=== PATIENT | male | born 1995 | race Caucasian/White ===

== ENCOUNTER 2017-05-15 13:09 | Emergency (ER) | payer MEDICAID ==
[~2017-05-15] VITALS: Ht 172.7 cm; Wt 18.2 kg
[~2017-05-15 13:09] MED LIST: DICL100G15 TOP; NO HOME MEDS
[2017-05-15] MEDS ORDERED: acetaminophen 325mg tablet PO ONE (13:45)
[2017-05-15 13:53] VITALS: BP 147/93
== END 2017-05-15 13:54 | disposition home or self-care (01) ==
LOC: ER 13:10
DX: M25.571 Pain in right ankle and joints of right foot (principal); G89.29 Other chronic pain; F12.10 Cannabis abuse, uncomplicated; Z59.0 Homelessness; Z98.890 Other specified postprocedural states
CPT/HCPCS: 99282

== ENCOUNTER 2017-08-18 18:33 | Emergency (ER) | payer MEDICAID ==
[~2017-08-18] VITALS: Ht 175.3 cm; Wt 63.6 kg
[2017-08-18 19:00] VITALS: BP 129/81
== END 2017-08-18 19:31 ==
LOC: ER 18:33
DX: S30.0XXA Contusion of lower back and pelvis, initial encounter (principal); G89.29 Other chronic pain; F12.10 Cannabis abuse, uncomplicated; Z59.0 Homelessness; Z56.0 Unemployment, unspecified; Z98.890 Other specified postprocedural states; Z79.899 Other long term (current) drug therapy; X58.XXXA Exposure to other specified factors, initial encounter; Y93.89 Activity, other specified; Y92.89 Other specified places as the place of occurrence of the external cause; Y99.8 Other external cause status
CPT/HCPCS: 99283; J7030

== ENCOUNTER 2024-09-26 13:08 | Emergency (ER) | payer MEDICAID ==
[~2024-09-26] VITALS: Ht 172.7 cm; Wt 55.0 kg
[2024-09-26 13:23] VITALS: BP 141/119; PULSE 85; RESP 18; TEMP 97.8; O2SAT 100
--- NOTE | 2024-09-26 14:22 | Physician Documentation ---
HPI ~ General Chief Complaint: Medication Refill Stated Complaint: MEDICATION REFILL Time Seen by MD: 14:13 Primary Medical Doctor: Clari History of Present Illness HPI Comments 29-year-old male presents to the ED with a complaint of a medication refill of Suboxone. States he has been out for several days. He has also reportedly been using methamphetamine. Without Medications Since: September 26, 2024 Medication Reconciliation Allergies: Coded Allergies: No Known Allergies (Unverified , 09/26/24) Scheduled Buprenorphine HCl/Naloxone HCl (Suboxone 12 mg-3 mg Sl Film), 1 STRIP SL DAILY Diclofenac Sodium (Voltaren), 1 GM TOP Q6H Miscellaneous Medications Home Med List (No Home Medications), (Reported) Past Medical History Past Medical History: *CARDIOVASCULAR*, Chronic Pain Past Surgical History: orthopedic surgeries Alcohol Use: Occasionally Drug Use: marijuana Lives with: Mother, Father Lives In: Homeless Occupation: unemployed Review of Systems All Other Systems at this time: Reviewed and Negative ROS As stated above in the HPI, otherwise all systems are reviewed and negative. Physical Exam Physical Exam Vital Signs: Temperature: 97.8, Source: Temporal, Heart Rate: 85, Respiratory Rate: 18, BP: 141/119, Pulse Oximetry: 100, Weight: 55.000 Physical Exam General: Alert, no apparent distress. HEENT: PERRL, EOMI, no injection, moist mucous membranes. Neck: Full range of motion. Respiratory: Lungs clear, no respiratory distress. Chest: No accessory muscle use. Cardiovascular: Regular rate and rhythm, no murmurs. Gastrointestinal: Soft, nontender, nondistended. Bowels sounds present. Extremities: Normal range of motion, no deformity. Neurologic: Oriented x4. Psychiatric: Normal mood and affect. Skin: Normal color, warm and dry. No edema, no ecchymosis. Progress Results/Orders Results/Orders Vital Signs 09/26/24 13:23 Temp 97.8 Pulse 85 Resp 18 B/P (MAP) 141/119 Pulse Ox 100 Departure Disposition: HOME / SELF CARE / HOMELESS Impression: Primary Impression: General medical exam Condition: Stable Discharge Instructions: Medicine Refill at the Emergency Department Referrals: NO PRIMARY CARE PROVIDER (PCP) Prescriptions Buprenorphine HCl/Naloxone HCl (Suboxone 12 mg-3 mg Sl Film) 12 Mg-3 Mg Film 1 STRIP SL DAILY for 14 Days, #14 STRIP 0 Refills Prov: CHARY MEDELLIN NP 09/26/24 Education Educated: Patient Educated regarding: diagnosis Signature Scribe Signature: t Attestation: The note accurately reflects work and decisions made by me.Chary Medellin - MIGUEL 09/26/24 18:30 CHARY MEDELLIN NP September 26, 2024 14:22
[2024-09-26] MEDS ORDERED: BUPR1FIL7 SL (14:30)
== END 2024-09-26 14:53 | disposition home or self-care (01) ==
LOC: ER 13:09
DX: F41.9 Anxiety disorder, unspecified (principal); F12.90 Cannabis use, unspecified, uncomplicated; Z76.0 Encounter for issue of repeat prescription; Z79.899 Other long term (current) drug therapy; Z56.0 Unemployment, unspecified; Z59.00 Homelessness unspecified; Z72.89 Other problems related to lifestyle
CPT/HCPCS: 99281

== ENCOUNTER 2024-10-06 17:52 | Emergency (ER) | payer MEDICAID ==
[~2024-10-06] VITALS: Ht 172.7 cm; Wt 52.6 kg
[~2024-10-06 17:52] MED LIST changes: +BUPR1FIL7 SL
[2024-10-06 17:54] VITALS: BP 127/86; PULSE 87; RESP 16; TEMP 98.5; O2SAT 97
--- NOTE | 2024-10-06 19:46 | Physician Documentation ---
HPI ~ General Chief Complaint: Medication Request Stated Complaint: MEDICATION REQUEST Time Seen by MD: 18:50 Primary Medical Doctor: Clari History of Present Illness HPI Comments 1-year-old male reports ER for medication refill. Patient is given a prescription for Suboxone is asking for a refill. Patient has already had his bridge program Suboxone given and he states he would like another refill for it. Denies nausea or vomiting. No other complaints at this time Medication Reconciliation Allergies: Coded Allergies: No Known Allergies (Unverified , 09/26/24) Scheduled Buprenorphine HCl/Naloxone HCl (Suboxone 12 mg-3 mg Sl Film), 1 STRIP SL DAILY Diclofenac Sodium (Voltaren), 1 GM TOP Q6H Miscellaneous Medications Home Med List (No Home Medications), (Reported) Past Medical History Past Medical History: *CARDIOVASCULAR*, Chronic Pain Past Surgical History: orthopedic surgeries Alcohol Use: Occasionally Drug Use: marijuana Lives with: Mother, Father Lives In: Homeless Occupation: unemployed Physical Exam Physical Exam Vital Signs: Temperature: 98.5, Source: Oral, Heart Rate: 87, Respiratory Rate: 16, BP: 127/86, Pulse Oximetry: 97, Weight: 52.600 Oxygen Flow Rate: 0 Physical Exam General: Well developed, well nourished, no distress. HEENT: Atraumatic, normal conjunctiva, moist mucous membranes. Neck: Full range of motion, supple. Respiratory: Lungs clear, no respiratory distress. Chest: No accessory muscle use, nontender. Cardiovascular: Regular rate and rhythm. Gastrointestinal: Soft, nontender, nondistended. Bowel sounds present. Extremities: Normal range of motion, nontender, normal capillary refill, no deformity. Back: No midline tenderness, no CVA tenderness. Neurologic: Oriented x4. Distal gross motor and sensory intact all four extremities. Moves all 4 extremities spontaneously. Psychiatric: Normal mood and affect. Skin: Normal color, warm and dry. No edema, no ecchymosis Progress Results/Orders Results/Orders Vital Signs 10/06/24 17:54 Temp 98.5 Pulse 87 Resp 16 B/P (MAP) 127/86 Pulse Ox 97 O2 Flow Rate 0 Medical Decision Making Additional info obtained from: old records Findings After detailed discussion jet medical decision-making, diagnostic imaging results were discussed with patient. At this time patient will not be given a refill for his Suboxone. Patient does not meet criteria for the bridge program but will not be given it to him patient is advised to follow up with his substance abuse counselor for a refill. ER precautions were given. Patient is stable upon discharge. All patient questions answered to satisfaction Differential Dx:Considerations: Include: Adverse circumstances, Psychosocial, Medical services unavail., Medication non-compliance Departure Disposition: HOME / SELF CARE / HOMELESS Impression: Primary Impression: General medical exam Condition: Stable Discharge Instructions: Medicine Refill at the Emergency Department Referrals: NO PRIMARY CARE PROVIDER (PCP) Education Educated: Patient Educated regarding: diagnosis, treatment Signature Scribe Signature: None used Attestation: Scribed for Reji Mcmanus by Reji HUTCHINS . 10/06/24 19:45 REJI MCMANUS October 06, 2024 19:46
== END 2024-10-06 19:51 | disposition home or self-care (01) ==
LOC: ER 17:53
DX: F12.90 Cannabis use, unspecified, uncomplicated (principal); Z76.0 Encounter for issue of repeat prescription; Z56.0 Unemployment, unspecified; Z59.00 Homelessness unspecified; Z79.899 Other long term (current) drug therapy; Z98.890 Other specified postprocedural states
CPT/HCPCS: 99281

== ENCOUNTER 2025-03-29 15:00 | Emergency (ER) | payer MEDICAID ==
[~2025-03-29] VITALS: Ht 172.7 cm; Wt 63.6 kg
[2025-03-29 15:07] VITALS: BP 150/91; PULSE 110; RESP 16; TEMP 99; O2SAT 98
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
== END 2025-03-29 16:43 | disposition home or self-care (01) ==
LOC: ER 15:01 → MERGE 15:01 → EDBD 15:01 → ER 16:43
DX: Z00.00 Encounter for general adult medical examination without abnormal findings (principal)
CPT/HCPCS: 73100; 73590; 99284